=== PATIENT | female | born 1990 | race Caucasian/White ===

== ENCOUNTER 2017-11-05 11:26 | Emergency (ER) | payer MEDICAID ==
[2017-11-05 11:28] VITALS: BMI 20.5
[2017-11-05 11:48] VITALS: O2SAT 99
--- NOTE | 2017-11-05 12:43 | ED PDOC ---
HPI: Headache Time Seen by Provider: 11/05/17 11:59 Chief Complaint (Nursing): Headache Chief Complaint (Provider): Headache History Per: Patient History/Exam Limitations: no limitations Onset/Duration Of Symptoms: Days (x4) Current Symptoms Are (Timing): Still Present Additional Complaint(s): Ansley Martinez is a 27 year old female with a past medical history of pre- eclampsia, who presents to the ED complaining of headache x4 days. Patient states has had an intermittent headache for the past month, but 4 days ago it gradually became constant and continuous. Confirms associated photosensitivity and dizziness with her headaches. Denies fever, neck pain, chest pain, abdominal pain, and vaginal bleeding. Patient is 23 weeks . States she has previously had normal US. 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 PMD: Non-H Provider Past Medical History Reviewed: Historical Data, Nursing Documentation, Vital Signs Vital Signs: Last Vital Signs Temp 98.6 F 11/05/17 11:45 Pulse 86 11/05/17 11:45 Resp 20 11/05/17 11:45 BP 114/66 11/05/17 11:45 Pulse Ox 99 11/05/17 11:45 - Medical History PMH: Diabetes, Hypercholesterolemia, Hyperlipidemia Denies: Chronic Kidney Disease Other PMH: Preeclampsia - Surgical History Surgical History: - Family History Family History: States: Unknown Family Hx - Immunization History Hx Tetanus Toxoid Vaccination: No Hx Influenza Vaccination: No Hx Pneumococcal Vaccination: No - Home Medications Home Medications: Ambulatory Orders Medication Instructions Recorded Insulin Detemir [Levemir] 20 units SC HS #1 vial 06/26/16 Insulin Lispro [Humalog (Insulin 15 units SC ACHS 07/11/17 Lispro)] Multivit/Folic Acid/I 1 tab PO DAILY #30 tab 07/19/17 [ Plus] Acetaminophen [Tylenol 325mg tab] 650 mg PO Q6 #20 tab 08/14/17 - Allergies Allergies/Adverse Reactions: Allergies Allergy/AdvReac Type Severity Reaction Status Date / Time No Known Allergies Allergy Verified 08/14/17 00:12 Review of Systems ROS Statement: Except As Marked, All Systems Reviewed And Found Negative Constitutional: Negative for: Fever Eyes: Positive for: Other (Photosensitivity) Cardiovascular: Negative for: Chest Pain Gastrointestinal: Negative for: Abdominal Pain Genitourinary Female: Negative for: Vaginal Bleeding Musculoskeletal: Negative for: Neck Pain Neurological: Positive for: Headache, Dizziness, Other Physical Exam - Reviewed Nursing Documentation Reviewed: Yes Vital Signs Reviewed: Yes - Physical Exam Appears: Positive for: Well, Non-toxic, No Acute Distress Head Exam: Positive for: ATRAUMATIC, NORMAL INSPECTION, NORMOCEPHALIC Skin: Positive for: Normal Color, Warm, Dry. Negative for: Rash Eye Exam: Positive for: EOMI, Normal appearance, PERRL ENT: Positive for: Normal ENT Inspection Neck: Positive for: Normal, Painless ROM, Supple Cardiovascular/Chest: Positive for: Regular Rate, Rhythm. Negative for: Murmur Respiratory: Positive for: Normal Breath Sounds. Negative for: Respiratory Distress Gastrointestinal/Abdominal: Positive for: Other (Gravid) Back: Positive for: Normal Inspection. Negative for: L CVA Tenderness, R CVA Tenderness, Vertebral Tenderness Extremity: Positive for: Normal ROM. Negative for: Pedal Edema, Deformity Neurologic/Psych: Positive for: Alert, Oriented (x3) - Laboratory Results Result Diagrams: 11/05/17 12:46 11/05/17 12:46 - ECG O2 Sat by Pulse Oximetry: 99 (RA) Pulse Ox Interpretation: Normal - Progress Re-evaluation Time: 17:00 Condition: Re-examined, Improved Medical Decision Making Medical Decision Making: Time: 12:38 Clinical Impression: Headache. Considerations include primary headaches such as migraines, cluster headaches, and tension headaches, as well as secondary headaches such as preeclampsia, increased intracranial pressure, brain mass, central venous thrombosis, and intracerebral hemorrhage. Plan: --Brain MRI --CMP --Urine drug screen --ED Urine --ED Urine dipstick --CBC w/ differential --PTT --Prothrombin Time --Sodium Chloride 0.9% 1,000 ml IV --Tylenol 650 mg PO --O2 via nasal cannula --Reevaluation Time: 15:15 Brain MRI FINDINGS: HEMORRHAGE: None DWI: No evidence of an acute or early subacute infarction. BRAIN PARENCHYMA: No mass effect or edema. No atrophy or chronic microvascular ischemic changes. VENTRICLES: Unremarkable. No hydrocephalus. CRANIUM: Unremarkable. ORBITS: Grossly unremarkable. PARANASAL SINUSES/MASTOIDS: Tiny retention cyst/ polyp along medial wall left maxillary sinus. VASCULAR SYSTEM: Skull base flow voids intact. OTHER FINDINGS: None. IMPRESSION: No intracranial mass, hemorrhage or evidence of acute infarct. Tiny left maxillary retention cyst/ polyp. Otherwise unremarkable examination. Scribe Attestation: Documented by Gopal Valdez acting as a scribe for Aldo Ruiz MD. Scribe Attestation: All medical record entries made by the Scribe were at my direction and personally dictated by me. I have reviewed the chart and agree that the record accurately reflects my personal performance of the history, physical exam, medical decision making, and the department course for this patient. I have also personally directed, reviewed, and agree with the discharge instructions and disposition. Disposition - Clinical Impression Clinical Impression: Acute headache - Patient ED Disposition Is Patient to be Admitted: Transfer of Care Doctor Will See Patient In The: Office Counseled Patient/Family Regarding: Studies Performed, Diagnosis, Need For Followup - Disposition Referrals: [facility] [Outside] Angelo Barnett MD [Staff Provider] - Disposition: Routine/Home Disposition Time: 17:18 Condition: GOOD Additional Instructions: Take tylenol for headaches. Follow up with your PCP in 2 -3 days. You will be called in 2 days. Instructions: Acute Headache (ED) Forms: [employer] (Turkish)
[2017-11-05] MEDS: Sodium Chloride 0.9% 1,000 ML IV STA (13:01)
[2017-11-05 13:04] LABS: BASO % 0.2 % (0.0-2.0); EOS # 0.1 K/uL (0.0-0.7); EOS % 0.4 % (0.0-4.0); HEMATOCRIT 37.6 % (34.0-47.0); LYMPH # 2.1 K/uL (1.0-4.3); LYMPH % 14.1 % (20.0-40.0); MEAN CELL VOLUME 83.4 fl (81.0-99.0); MEAN CORPUSCULAR HEMOGLOBIN 27.4 pg (27.0-31.0); MEAN CORPUSCULAR HGB CONC 32.9 g/dL (33.0-37.0); MEAN PLATELET VOLUME 9.7 fl (7.2-11.7); MONO # 0.7 K/uL (0.0-0.8); MONO % 4.8 % (0.0-10.0); NEUT # 11.7 K/uL (1.8-7.0); NEUT % 80.5 % (50.0-75.0); NRBC % 0.2 % (0.0-0.0); WHITE BLOOD COUNT 14.6 K/uL (4.8-10.8)
[2017-11-05 13:13] LABS: BILIRUBIN,TOTAL 0.5 mg/dl (0.2-1.3); CALCIUM 9.3 mg/dL (8.4-10.2); CARBON DIOXIDE 23 mmol/L (22-30); CHLORIDE 105 mmol/L (98-107); GFR AFRICAN-AMERICAN > 60; GLUCOSE,RANDOM 135 mg/dL (65-105); SODIUM 138 mmol/l (132-148); TOTAL PROTEIN 8.5 G/DL (6.3-8.2)
[2017-11-05 13:20] LABS: ALKALINE PHOSPHATASE 128 U/L (38-126); ALT/SGPT 38 U/L (9-52); AST/SGOT 35 U/L (14-36); BLOOD UREA NITROGEN 7 mg/dl (7-17); POTASSIUM 4.4 MMOL/L (3.6-5.0)
[2017-11-05 13:36] LABS: PARTIAL THROMBOPLASTIN TIME 29.4 Seconds (25.6-37.1)
--- NOTE | 2017-11-05 15:17 | MRI ---
PROCEDURE: MRI BRAIN WITHOUT CONTRAST HISTORY: headache COMPARISON: None. TECHNIQUE: Multiplanar, multisequence MR images of the brain were obtained without intravenous contrast enhancement. FINDINGS: HEMORRHAGE: None DWI: No evidence of an acute or early subacute infarction. BRAIN PARENCHYMA: No mass effect or edema. No atrophy or chronic microvascular ischemic changes. VENTRICLES: Unremarkable. No hydrocephalus. CRANIUM: Unremarkable. ORBITS: Grossly unremarkable. PARANASAL SINUSES/MASTOIDS: Tiny retention cyst/ polyp along medial wall left maxillary sinus. VASCULAR SYSTEM: Skull base flow voids intact. OTHER FINDINGS: None. IMPRESSION: No intracranial mass, hemorrhage or evidence of acute infarct. Tiny left maxillary retention cyst/ polyp. Otherwise unremarkable examination
[2017-11-05 17:01] VITALS: BP 135/80; PULSE 75; RESP 16; TEMP 97.9
== END 2017-11-05 17:23 | disposition home or self-care (01) ==
LOC: H.ER 11:26
DX: R51 Headache (principal); O24.912 Unspecified diabetes mellitus in pregnancy, second trimester; Z79.4 Long term (current) use of insulin; Z3A.23 23 weeks gestation of pregnancy; E78.00 Pure hypercholesterolemia, unspecified; O99.282 Endocrine, nutritional and metabolic diseases complicating pregnancy, second trimester
CPT/HCPCS: 70551; 80053; 80324; 80345; 80346; 80349; 80353; 80358; 80361; 81025; 83992; 85025; 85610; 85730; 96361; 96374; 99283; J2765; J7040

== ENCOUNTER 2017-12-14 17:08 | Emergency (ER) | payer MEDICAID ==
[2017-12-14 18:08] VITALS: BMI 28.3
[2017-12-14] MEDS ORDERED: Sodium Chloride 0.9% 1,000 ML IV SCH ×2 (18:15)
[2017-12-14 18:54] LABS: SQUAMOUS EPITHIAL 3 /hpf (0-5); URINE BILIRUBIN NEGATIVE (NEGATIVE); URINE BLOOD NEGATIVE (NEGATIVE); URINE CLARITY SLIGHTY-CLOUDY (Clear); URINE COLOR YELLOW (YELLOW); URINE GLUCOSE (UA) >=500 mg/dL (Normal); URINE LEUKOCYTE ESTERASE NEG Leu/uL (Negative); URINE NITRATE NEGATIVE (NEGATIVE); URINE PROTEIN NEGATIVE (NEGATIVE); URINE UROBILINOGEN 0.2-1.0 mg/dL (0.2-1.0)
[2017-12-14 19:16] LABS: HEMOGLOBIN 10.9 g/dL (12.0-16.0); MEAN CELL VOLUME 82.8 fl (81.0-99.0); MEAN CORPUSCULAR HEMOGLOBIN 26.9 pg (27.0-31.0); MEAN CORPUSCULAR HGB CONC 32.5 g/dL (33.0-37.0); RBC 4.05 Mil/uL (3.80-5.20); RED CELL DISTRIBUTION WIDTH 12.9 % (11.5-14.5); WHITE BLOOD COUNT 12.9 K/uL (4.8-10.8)
[2017-12-14 19:26] LABS: ALB/GLOB RATIO 0.9 (1.0-2.1); ALBUMIN 3.5 g/dL (3.5-5.0); ALT/SGPT 21 U/L (9-52); AST/SGOT 17 U/L (14-36); BLOOD UREA NITROGEN 8 mg/dl (7-17); CALCIUM 8.7 mg/dL (8.4-10.2); GFR AFRICAN-AMERICAN > 60; GFR NON-AFRICAN AMERICAN > 60
--- NOTE | 2017-12-14 19:59 | OBHP ---
Datetime: 12/14/2017 18:21 IP Adm Impression: , intrauterine Admit Comment, IP Provider: 27 y/o female at 27.3 wks gestation, LIA 03/15/18, with IDDM pre sents to [facility] with complaints of abdominal pain associated with naseua and chest tightness and SOB. P t reports that abdominal pain started at 11 am this morning, describes it as sharp non radiating, and intermittent (3-4x today) and 5/10 in intensity, and associated with naseua. Denies CTX, VB, Loss of fluid, dysuria, vomiting, diarrhea, fever chills. Has not felt baby move today. Pt states that she h as been experiencing chest tightness and feeling breathless for the past week, denies CP, palpatation s, LE swelling. Denies recent sexual activity. Pt states that she has been unable to monitor her bloo d glucose levels at home because she ran out of glucose strip and was unable to purchase more because of insurance issues. States that her sugars range between 60-360 and are uncontrolled. PNC: Pt recieving care by OBGYN at [facility]. States that she is being managed for high r isk but is unsure. Pt is a poor historian. Does not have contact information or names of do ctors managing her . Was last seen 11/30, appt 12/23. OBHx: 1 prior C section without PNC, questionnable (pt unsure), complicated by HTN. 1 prio r TOP PMHx: IDDM Medication: Humalon 15-20units qAc and Levemir 25 units qHc, ASA 81mg, PNV Allergies: KNDA Denies smoking hx Vitals: Blood Sugar: 224 O2 sat: 98% BP: 119/68 HR: 89 Physical Exam: General: NAD, AOx3 Lungs: Clear to auscultationl no wheezing, rales, no use of accessory muscles Heart: RRR, no murmurs, normal S1, S2, no chest wall tenderness, no JVD Abdomen: Gravid, NT, no gaurding, or rigidity Pelvic: cervix closed, high Heart Monitor: 148, Category 1 Assessment and Plan: IUP at 27.3wks with complaints of chest, SOB, and abdominal pain and decrease d movement, found to be hyperglycemic at 224. Plan: Pt started on IV fluids, CBC, CMP, Troponins, U/A sent to check for ketones. EKG. Pt to be t [facility]ferred to [facility]. Discuss case with OB Attending, Dr. Nicole Washington, PGY1 OB Hospitalist Addendum: Pt seen and examined. Agree w/ above. 27 yo at 27+3 wks w/ prege stational diabetes, reports that she has intermittent right-sided abdominal pain that started at 11 a m, nausea, and dizziness, chest tighteness and SOB x 1 week. Pt reports that her OB is Dr. Shayla Mena w/ [facility]. Pt also reports that she see an identification technician but has a difficult time reaching her. Pt reports that she was dx'd w/ diabetes w/ her 1st 8 years ago. Pt reports that she is on humalog 15-20u prior to each meal and levemir before bed. Pt reports that her sugars range from 50-300. Pt reports that they are often 220-230. FS is 224. On exam, pt appears comfortable lying in bed. Heart: RRR, Chest: lungs CTA b/l. Abd: soft, NT, gravid, Spec: FFN done and discarded. VE: cl osed/ long/ high. EFM: 140's. moderate variability. [place]: quiet. Case discussed w/ Dr. Lund. Pt to be transferred to [facility] under Dr. Lund for evaluation and treatment of labile sugars. (ES) EGA AdmitDate IP: 27.3 Vital Signs Provider: Reviewed; Within Normal Limits IP Chief Complaint: Decreased movement; Other
[2017-12-14 21:20] LABS: SPECIMEN COMMENT MUCOID-LIKE
[2017-12-15 02:44] VITALS: BP 102/58; PULSE 83; RESP 20; TEMP 98.1; O2SAT 100
== END 2017-12-14 19:55 | disposition short-term general hospital (02) ==
LOC: H.EROB2 17:08
DX: O26.93 Pregnancy related conditions, unspecified, third trimester (principal); R07.9 Chest pain, unspecified; R06.02 Shortness of breath; R10.2 Pelvic and perineal pain; O36.8130 Decreased fetal movements, third trimester, not applicable or unspecified; O09.92 Supervision of high risk pregnancy, unspecified, second trimester
CPT/HCPCS: 80053; 81003; 82731; 82948; 84484; 85027; 99283; J7040

== ENCOUNTER 2018-03-08 12:13 | Emergency (ER) | payer MEDICAID ==
[2018-03-08 12:19] VITALS: BMI 34.7
[2018-03-08 12:21] VITALS: BP 111/75; PULSE 103; RESP 17; TEMP 98.4; O2SAT 97
[2018-03-08] MEDS ORDERED: Sodium Chloride 0.9% 1,000 ML IV STA (12:40)
--- NOTE | 2018-03-08 12:40 | ED PDOC ---
HPI: Female Pain Time Seen by Provider: 03/08/18 12:28 Chief Complaint (Nursing): Female Genitourinary Chief Complaint (Provider): fever, possible infection History Per: Patient Additional Complaint(s): 27-year-old female status post 3 days ago presents with abdominal pain and surgical incision pain since yesterday. Patient also is concerned she may have had fever as she has felt warm and has been sweating. She woke up this morning and noticed yellow purulent drainage from incision and applied topical antibiotic cream, then came to ED. Patient had at in [place]. She did not contact her pain. Patient states she has an appointment on Saturday for follow-up with OB. Patient is not breast feeding. OB: does not know name Past Medical History Reviewed: Historical Data, Nursing Documentation, Vital Signs Vital Signs: Last Vital Signs Temp 98.4 F 03/08/18 12:19 Pulse 103 H 03/08/18 12:19 Resp 17 03/08/18 12:19 BP 111/75 03/08/18 12:19 Pulse Ox 97 03/08/18 12:19 - Medical History PMH: Diabetes, Hypercholesterolemia, Hyperlipidemia - Surgical History Surgical History: (x 2) - Family History Family History: States: No Known Family Hx - Living Arrangements Living Arrangements: With Family - Social History Current smoker - smoking cessation education provided: No Alcohol: None Drugs: Denies - Home Medications Home Medications: Ambulatory Orders Medication Instructions Recorded Insulin Detemir [Levemir] 20 units SC HS #1 vial 06/26/16 Insulin Lispro [Humalog (Insulin 15 units SC ACHS 07/11/17 Lispro)] Multivit/Folic Acid/I 1 tab PO DAILY #30 tab 07/19/17 [ Plus] Acetaminophen [Tylenol 325mg tab] 650 mg PO Q6 #20 tab 08/14/17 Clindamycin [Cleocin] 300 mg PO QID #28 cap 03/08/18 Ibuprofen [Motrin Tab] 800 mg PO Q8 PRN #20 tab 03/08/18 - Allergies Allergies/Adverse Reactions: Allergies Allergy/AdvReac Type Severity Reaction Status Date / Time No Known Allergies Allergy Verified 03/08/18 12:26 Review of Systems ROS Statement: Except As Marked, All Systems Reviewed And Found Negative Constitutional: Positive for: Fever (subjective), Chills, Sweats Cardiovascular: Negative for: Chest Pain Respiratory: Negative for: Cough Gastrointestinal: Positive for: Abdominal Pain. Negative for: Nausea, Vomiting Genitourinary Female: Positive for: Pelvic Pain. Negative for: Dysuria, Frequency, Incontinence, Hematuria, Vaginal Discharge, Vaginal Bleeding Physical Exam - Reviewed Nursing Documentation Reviewed: Yes Vital Signs Reviewed: Yes - Physical Exam Appears: Positive for: Well, Non-toxic, No Acute Distress Skin: Negative for: Rash Eye Exam: Positive for: Normal appearance Cardiovascular/Chest: Positive for: Regular Rate, Rhythm Respiratory: Positive for: Normal Breath Sounds Gastrointestinal/Abdominal: Positive for: Other (erythema and edema noted surrounding incision, mable are intact, dried yellow drainage noted) Back: Negative for: L CVA Tenderness, R CVA Tenderness Extremity: Positive for: Normal ROM Neurologic/Psych: Positive for: Alert, Oriented - Laboratory Results Result Diagrams: 03/08/18 12:30 03/08/18 12:30 - ECG O2 Sat by Pulse Oximetry: 97 Pulse Ox Interpretation: Normal Medical Decision Making Medical Decision Makin27 year old with pain to surgical site s/p 3 days ago Plan: CBC CMP Blood culture Wound culture IVF IV toradol urine dip Glucose is 254 via fingerstick and 306 via blood draw. 4 units IV insulin given. Patient is known diabetic. Repeat glucose - 153 Patient states pain is improved after Toradol was given. Prescriptions provided for clindamycin and Motrin. Patient was advised to keep wound clean and dry and avoid any topical creams. Patient has follow-up on Saturday with her OB. She was advised to keep this appointment but is aware she can return to ED if acutely worse at any time. Disposition - Clinical Impression Clinical Impression: Surgical site infection - Patient ED Disposition Is Patient to be Admitted: No Counseled Patient/Family Regarding: Studies Performed, Diagnosis, Need For Followup, Rx Given - [facility]position [facility] Disposition: Routine/Home Disposition Time: 14:07 Condition: STABLE Additional Instructions: Keep wound clean and dry. Do not apply any topical creams or ointments. Take prescription meds as directed. Follow up on Saturday with OB. Prescriptions: Clindamycin [Cleocin] 300 mg PO QID #28 cap Ibuprofen [Motrin Tab] 800 mg PO Q8 PRN #20 tab PRN Reason: Pain, Moderate (4-7) Instructions: Surgical Wound (DC), Wound Infection Forms: [employer] (German) Results - Lab Results Lab Results: 03/08/18 03/08/18 03/08/18 12:30 12:30 12:29 WBC 16.7 H RBC 4.61 Hgb 12.6 Hct 39.0 MCV 84.5 MCH 27.3 MCHC 32.3 L RDW 13.6 Plt Count 393 D MPV 9.5 Neut % (Auto) 76.7 H Lymph % (Auto) 13.9 L [place] % (Auto) 8.2 Eos % (Auto) 0.5 Baso % (Auto) 0.7 Neut # (Auto) 12.8 H Lymph # (Auto) 2.3 [place] # (Auto) 1.4 H Eos # (Auto) 0.1 Baso # (Auto) 0.1 Sodium 136 Potassium 4.6 Chloride 100 Carbon Dioxide 19 L Anion Gap 22 H BUN 10 Creatinine 0.5 L Est GFR ( Amer) > 60 Est GFR (Non-Af Amer) > 60 POC Glucose (mg/dL) 254 H Random Glucose 306 H Calcium 8.7 Total Bilirubin 0.8 AST 38 H D ALT 19 Alkaline Phosphatase 125 Total Protein 7.7 Albumin 3.6 Globulin 4.1 H Albumin/Globulin Ratio 0.9 L
[2018-03-08] MEDS ORDERED: Insulin Regular 100 units/ml IV STA (13:19)
[2018-03-08 13:20] LABS: BASO # 0.1 K/uL (0.0-0.2); BASO % 0.7 % (0.0-2.0); EOS # 0.1 K/uL (0.0-0.7); EOS % 0.5 % (0.0-4.0); HEMOGLOBIN 12.6 g/dL (12.0-16.0); LYMPH # 2.3 K/uL (1.0-4.3); LYMPH % 13.9 % (20.0-40.0); MEAN CELL VOLUME 84.5 fl (81.0-99.0); MEAN CORPUSCULAR HEMOGLOBIN 27.3 pg (27.0-31.0); MEAN CORPUSCULAR HGB CONC 32.3 g/dL (33.0-37.0); MEAN PLATELET VOLUME 9.5 fl (7.2-11.7); MONO # 1.4 K/uL (0.0-0.8); MONO % 8.2 % (0.0-10.0); NEUT # 12.8 K/uL (1.8-7.0); NEUT % 76.7 % (50.0-75.0); NRBC % 0.1 % (0.0-0.0); RBC 4.61 Mil/uL (3.80-5.20); RED CELL DISTRIBUTION WIDTH 13.6 % (11.5-14.5); WHITE BLOOD COUNT 16.7 K/uL (4.8-10.8)
[2018-03-08 13:33] LABS: ALB/GLOB RATIO 0.9 (1.0-2.1); ALBUMIN 3.6 g/dL (3.5-5.0); ALT/SGPT 19 U/L (9-52); AST/SGOT 38 U/L (14-36); BLOOD UREA NITROGEN 10 mg/dl (7-17); CALCIUM 8.7 mg/dL (8.4-10.2); GFR AFRICAN-AMERICAN > 60; GFR NON-AFRICAN AMERICAN > 60
== END 2018-03-08 14:44 | disposition home or self-care (01) ==
LOC: H.ER 12:13
DX: T81.4XXA Infection following a procedure, initial encounter (principal); E11.9 Type 2 diabetes mellitus without complications; E78.00 Pure hypercholesterolemia, unspecified; Z79.4 Long term (current) use of insulin
CPT/HCPCS: 80053; 82948; 85025; 87040; 87070; 96374; 96375; 99284; J1885; J7040

== ENCOUNTER 2018-04-23 20:31 | Emergency (ER) | payer MEDICAID ==
[2018-04-23 20:31] VITALS: BMI 34.7
[2018-04-23 20:42] VITALS: BP 109/71; PULSE 78; RESP 14; TEMP 98.2; O2SAT 99
--- NOTE | 2018-04-23 21:27 | ED PDOC ---
HPI: General Adult Time Seen by Provider: 04/23/18 20:35 Chief Complaint (Nursing): Abnormal Skin Integrity Chief Complaint (Provider): Abnormal Skin Integrity History Per: Patient History/Exam Limitations: no limitations Onset/Duration Of Symptoms: Days (x 1 week) Current Symptoms Are (Timing): Still Present Additional Complaint(s): 27 year old female with a history of diabetes presents to the ED complaining of waking up in sweats for the last week. Patient reports 1 month ago, after a c- section at [facility], she had an incisional infection and was on antibiotics. Patient states that she has checked her sugar levels regularly and they were stable. She denies fluctuance, drainage, dysuria, fever, vomiting and diarrhea. PMD: Dr. Ashley Bowman Past Medical History Reviewed: Historical Data, Nursing Documentation, Vital Signs Vital Signs: Last Vital Signs Temp 98.2 F 04/23/18 20:38 Pulse 78 04/23/18 20:38 Resp 14 04/23/18 20:38 BP 109/71 04/23/18 20:38 Pulse Ox 99 04/23/18 23:34 - Medical History PMH: Diabetes, Hypercholesterolemia, Hyperlipidemia Denies: Chronic Kidney Disease - Surgical History Surgical History: (x 2) - Family History Family History: States: Unknown Family Hx - Immunization History Hx Tetanus Toxoid Vaccination: No Hx Influenza Vaccination: No Hx Pneumococcal Vaccination: No - Home Medications Home Medications: Ambulatory Orders Medication Instructions Recorded Insulin Detemir [Levemir] 20 units SC HS #1 vial 06/26/16 Insulin Lispro [Humalog (Insulin 15 units SC ACHS 07/11/17 Lispro)] Multivit/Folic Acid/I 1 tab PO DAILY #30 tab 07/19/17 [ Plus] Acetaminophen [Tylenol 325mg tab] 650 mg PO Q6 #20 tab 08/14/17 Clindamycin [Cleocin] 300 mg PO QID #28 cap 03/08/18 Ibuprofen [Motrin Tab] 800 mg PO Q8 PRN #20 tab 03/08/18 Cephalexin [cephalexin] 500 mg PO BID #14 cap 04/23/18 - Allergies Allergies/Adverse Reactions: Allergies Allergy/AdvReac Type Severity Reaction Status Date / Time No Known Allergies Allergy Verified 03/08/18 12:26 Review of Systems ROS Statement: Except As Marked, All Systems Reviewed And Found Negative Constitutional: Positive for: Sweats (at night; not currently ). Negative for: Fever Gastrointestinal: Negative for: Nausea, Vomiting, Abdominal Pain, Diarrhea Physical Exam - Reviewed Nursing Documentation Reviewed: Yes Vital Signs Reviewed: Yes - Physical Exam Appears: Positive for: Non-toxic, No Acute Distress (afebrile ) Head Exam: Positive for: ATRAUMATIC, NORMAL INSPECTION, NORMOCEPHALIC Skin: Positive for: Normal Color, Warm, Dry Eye Exam: Positive for: EOMI, Normal appearance, PERRL Neck: Positive for: Normal, Painless ROM, Supple Cardiovascular/Chest: Positive for: Regular Rate, Rhythm. Negative for: Murmur Respiratory: Positive for: Normal Breath Sounds. Negative for: Respiratory Distress Gastrointestinal/Abdominal: Positive for: Normal Exam, Soft, Other ( scar is clean, dry and intact without fluctuance, erythema, drainage, cellulitis ; mild erythema on vaginal area from shaving) Extremity: Positive for: Normal ROM. Negative for: Deformity Neurologic/Psych: Positive for: Alert, Oriented. Negative for: Motor/Sensory Deficits - Laboratory Results Result Diagrams: 04/23/18 21:49 04/23/18 21:49 - ECG O2 Sat by Pulse Oximetry: 99 (RA) Pulse Ox Interpretation: Normal Medical Decision Making Medical Decision Makin:23 Impression: Chills, hot flashes rule out infection Initial Plan: --CMP --CBC --UA --Urine cx 23:30 Pt states she is feeling better, with no fever in the ED. White count was slightly elevated, but all results were discussed with pt. 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 Scribe Attestation: Documented by Rajani Amaro, acting as a scribe for Francisca Loredo MD Provider Scribe Attestation: All medical record entries made by the Scribe were at my direction and personally dictated by me. I have reviewed the chart and agree that the record accurately reflects my personal performance of the history, physical exam, medical decision making, and the department course for this patient. I have also personally directed, reviewed, and agree with the discharge instructions and disposition. Disposition - Clinical Impression Clinical Impression: Chills (without fever) - Patient ED Disposition Is Patient to be Admitted: No Counseled Patient/Family Regarding: Studies Performed, Diagnosis, Need For Followup - Disposition Disposition: Routine/Home Disposition Time: 22:40 Condition: IMPROVED Additional Instructions: follow up with your offset duplicating machine operator in 1-2 days as well as Dr Qiuñones for glucose control return to the ED with any worsening or concerning symptoms Prescriptions: Cephalexin [cephalexin] 500 mg PO BID #14 cap Instructions: Hot Flashes Forms: [employer] (Slovak)
[2018-04-23 21:57] LABS: BASO # 0.2 K/uL (0.0-0.2); BASO % 1.4 % (0.0-2.0); EOS # 0.3 K/uL (0.0-0.7); EOS % 2.7 % (0.0-4.0); HEMOGLOBIN 12.3 g/dL (12.0-16.0); LYMPH # 4.4 K/uL (1.0-4.3); LYMPH % 40.2 % (20.0-40.0); MEAN CELL VOLUME 84.5 fl (81.0-99.0); MEAN CORPUSCULAR HEMOGLOBIN 27.8 pg (27.0-31.0); MEAN CORPUSCULAR HGB CONC 32.8 g/dL (33.0-37.0); MEAN PLATELET VOLUME 9.4 fl (7.2-11.7); MONO # 0.8 K/uL (0.0-0.8); MONO % 6.9 % (0.0-10.0); NEUT # 5.4 K/uL (1.8-7.0); NEUT % 48.8 % (50.0-75.0); NRBC % 0.1 % (0.0-0.0); RBC 4.44 Mil/uL (3.80-5.20); RED CELL DISTRIBUTION WIDTH 13.7 % (11.5-14.5)
[2018-04-23 22:23] LABS: ALBUMIN 4.1 g/dL (3.5-5.0); ALT/SGPT 20 U/L (9-52); AST/SGOT 37 U/L (14-36); BLOOD UREA NITROGEN 11 mg/dl (7-17); CALCIUM 8.9 mg/dL (8.4-10.2); GFR AFRICAN-AMERICAN > 60; GFR NON-AFRICAN AMERICAN > 60
[2018-04-23 22:37] LABS: SQUAMOUS EPITHIAL 6 /hpf (0-5); URINE BILIRUBIN NEGATIVE (NEGATIVE); URINE BLOOD NEGATIVE (NEGATIVE); URINE CLARITY CLOUDY (Clear); URINE COLOR YELLOW (YELLOW); URINE GLUCOSE (UA) 50 mg/dL (Normal); URINE LEUKOCYTE ESTERASE NEG Leu/uL (Negative); URINE PROTEIN NEGATIVE (NEGATIVE); URINE UROBILINOGEN 0.2-1.0 mg/dL (0.2-1.0)
== END 2018-04-23 23:30 | disposition home or self-care (01) ==
LOC: H.ER 20:31
DX: R68.83 Chills (without fever) (principal); E11.9 Type 2 diabetes mellitus without complications; E78.00 Pure hypercholesterolemia, unspecified; Z79.4 Long term (current) use of insulin